=== PATIENT | female | born 1995 | race Two or more races ===

== ENCOUNTER 2022-03-19 05:54 | Emergency (ER) | payer OTHER, SELFPAY ==
--- NOTE | ~2022-03-19 | XR_ITS ---
EXAMINATION: XR CHEST CLINICAL INFORMATION: Chest pain COMPARISON: 08/15/2019 TECHNIQUE: 2 views of the chest were obtained. FINDINGS: The lungs are well expanded. There is no focal consolidation, edema, or effusion. No pneumothorax. The cardiomediastinal silhouette is within normal limits. No acute osseous abnormality. XR/XR chest 2V IMPRESSION: Clear lungs.
--- NOTE | 2022-03-19 05:59 | ECG_ITS ---
Test Reason : CP Blood Pressure : / mmHG Vent. Rate : 068 BPM Atrial Rate : 068 BPM P-R Int : 156 ms QRS Dur : 084 ms QT Int : 386 ms P-R-T Axes : 059 048 030 degrees QTc Int : 410 ms Normal sinus rhythm Normal ECG When compared with ECG of 15-AUG-2019 14:51, No significant change was found Referred By: Generic ED Physician Electronically Signed By:ERIN VILLEDA
[2022-03-19 06:18] VITALS: BP 131/56; PULSE 72; RESP 16; TEMP 36.8; O2SAT 98; BMI 40.3
[2022-03-19 06:30] LABS: MANUAL DIFF FLAG NO
[2022-03-19 06:31] LABS: Basophils Percent Auto 0.2 % (0-2); Eosinophils Absolute Auto 0.2 X10*3/uL (0.0-0.4); Eosinophils Percent Auto 1.5 % (0-4); Hematocrit 39.5 % (37.0-47.0); Hemoglobin 12.3 g/dl (12.0-16.0); Imm Gran Abs Auto 0.03 X10*3/uL (0.00-0.03); Imm Gran Pct Auto 0.3 % (0.0-0.4); Lymphocytes Absolute Auto 2.5 X10*3/uL (1.2-4.9); Lymphocytes Percent Auto 23.6 % (20-40); Mean Corpuscular HGB Conc 31.1 g/dl (31.0-35.0); Mean Corpuscular Volume 80.3 fL (80.0-98.0); Mean Platelet Volume 10.7 fL (9.4-12.3); Monocytes Absolute Auto 0.7 X10*3/uL (0.1-1.2); Monocytes Percent Auto 6.3 % (2-11); Neutrophils Absolute Auto 7.2 x10*3/uL (2.0-8.3); Neutrophils Percent Auto 68.1 % (45-73); Platelet Count 380 X10*3/uL (160-400); Red Blood Count 4.92 X10*6/uL (4.20-5.50); Red Cell Distribution Width 15.1 % (11.0-16.0); White Blood Count 10.6 X10*3/uL (4.8-10.8)
[2022-03-19 06:49] LABS: Anion Gap 15 (12-20); Blood Urea Nitrogen 9 mg/dL (9-16); Calcium 9.6 mg/dL (8.4-10.2); Carbon Dioxide 21 mmol/L (22-29); Chloride 109 mmol/L (96-108); Creatinine Clr Calc Pharmacy 139.1; Estimated Glomerular Filt Rate > 60; Glucose Random 105 mg/dL (60-115); Potassium 4.4 mmol/L (3.3-5.1); Sodium 141 mmol/L (135-145)
[2022-03-19 06:54] LABS: Troponin-I High Sensitivity < 3.5 ng/L (<3.5-17.0)
--- NOTE | 2022-03-19 09:52 | ED.CHESTPAIN ---
HPI - Chest Pain General Chief Complaint: Chest Pain Stated Complaint: chest pain Time Seen by Provider: 03/19/22 09:37 Mode of arrival: ambulatory Limitations: no limitations History of Present Illness HPI narrative: This is a 27 years old the female presented to the emergency department with a chief complaint of left-sided chest pain on and off for 1 week, denies any shortness of breath fever chills complaint: chest pain Onset (ago): week(s) (1) Timing of current episode: episodic Prior episodes: Yes Onset: during rest Pain location: substernal Pain radiation: none Severity: mild Quality: aching Relieving factors: nothing Exacerbating factors: nothing Risk Factors Coronary artery disease risk factors: none Thoracic aortic dissection risk factors: none Related Data Previous Rx's Medication Instructions Recorded clotrimazole-betamethasone 1 1 appl topical BID 2 weeks #45 03/14/22 %-0.05 % topical cream grams Allergies Allergy/AdvReac Type Severity Reaction Status Date / Time No Known Allergies Allergy Verified 03/19/22 06:18 Review of Systems Review of Systems: Yes all other systems are reviewed and are negative Cardiovascular: Cardiovascular: Reports chest pain Respiratory: Respiratory: Reports no additional respiratory complaints Gastrointestinal: Gastrointestinal: Reports no additional gastrointestinal complaints Musculoskeletal: Musculoskeletal: Reports no additional musculoskeletal complaints [facility] Past Medical History Surgical History History of wisdom tooth extraction Family History Family History Father Diabetes Mother No problems noted. Maternal Grandfather Diabetes Paternal Grandfather Diabetes Colon cancer Sister In good health Sister In good health Social History Social History Housing: Apartment Patient Tobacco Use Status: Never used Tobacco Advance Directives: No Advance Directives Information Provided: Yes service: No Current occupational status: employed Vision needs: Yes Physical Exam Vital Signs: Vital Signs: Last Vital Signs Temp 98.2 F 03/19/22 06:18 Pulse 72 03/19/22 06:18 Resp 16 03/19/22 06:18 BP 131/56 L 03/19/22 06:18 Pulse Ox 98 03/19/22 06:18 O2 Del Method 03/19/22 06:18 BMI result Body Mass Index 40.3 Const: General: cooperative Nutritional Appearance: well nourished Orientation/consciousness: patient oriented x3 HEENT: Head: Yes normal to inspection General nose exam: Normal external nose present Face and sinus: Yes normal facial exam Mouth: Normal oral and palatal mucosa present Teeth and gingiva: dentition normal Throat: Yes posterior oropharynx normal Neck: Neck: Yes full ROM and Yes no lymphadenopathy Resp: Effort & Inspection: normal respiratory effort and able to speak in complete sentences Auscultation: clear to auscultation bilaterally Cardio: Jugular venous distension: no JVD Rate: regular rate Rhythm: regular rhythm GI: Inspection: Yes normal to inspection Palpation (GI): Soft to palpation, not firm, nontender and no guarding Percussion: Yes normal to percussion Skin: General skin exam: no rashes or lesions noted and elasticity normal Lesions: no lesions Rashes: no rashes Neuro: General: patient oriented x3 Cranial nerves: Yes CN's II-XII intact bilaterally Cognition (Neuro): normal cognition Gait exam (Neuro): Normal gait present MDM - Chest Pain MDM Narrative Medical decision making narrative: This is a very low risk patient, she has a normal troponin negative EKG negative chest x-ray, the patient can be discharged home and follow-up with the PCP Lab Data Result diagrams: 03/19/22 06:27 03/19/22 06:27 Labs: Lab Results 03/19/22 03/19/22 03/19/22 Range/Units 06:27 06:27 06:27 WBC 10.6 (4.8-10.8) X10*3/uL RBC 4.92 (4.20-5.50) X10*6/uL Hgb 12.3 (12.0-16.0) g/dl Hct 39.5 (37.0-47.0) % MCV 80.3 (80.0-98.0) fL MCH 25.0 L (27.0-33.0) pg MCHC 31.1 (31.0-35.0) g/dl RDW 15.1 (11.0-16.0) % Plt Count 380 (160-400) X10*3/uL MPV 10.7 (9.4-12.3) fL Immature Gran % (Auto) 0.3 (0.0-0.4) % Neut % (Auto) 68.1 (45-73) % Lymph % (Auto) 23.6 (20-40) % [place] % (Auto) 6.3 (2-11) % Eos % (Auto) 1.5 (0-4) % Baso % (Auto) 0.2 (0-2) % Lymph # (Auto) 2.5 (1.2-4.9) X10*3/uL [place] # (Auto) 0.7 (0.1-1.2) X10*3/uL Eos # (Auto) 0.2 (0.0-0.4) X10*3/uL Baso # (Auto) 0.0 (0.0-0.2) X10*3/uL Abs Immat Gran (auto) 0.03 (0.00-0.03) X10*3/uL Absolute Neuts (auto) 7.2 (2.0-8.3) x10*3/uL Absolute Nucleated RBC 0.000 (0.0-0.012) X10*3/uL Nucleated RBC % (auto) 0.0 (0.0-0.2) /100WBC Sodium 141 (135-145) mmol/L Potassium 4.4 (3.3-5.1) mmol/L Chloride 109 H (96-108) mmol/L Carbon Dioxide 21 L (22-29) mmol/L Anion Gap 15 (12-20) BUN 9 (9-16) mg/dL Creatinine 0.79 (0.5-1.4) mg/dL Estim Creat Clear Calc 139.1 Estimated GFR > 60 Random Glucose 105 (60-115) mg/dL Calcium 9.6 (8.4-10.2) mg/dL Troponin I High Sens < 3.5 (<3.5-17.0) ng/L Imaging Data Chest x-ray: Radiologist's impression: EXAMINATION: XR CHEST CLINICAL INFORMATION: Chest pain COMPARISON: 08/15/2019 TECHNIQUE: 2 views of the chest were obtained. FINDINGS: The lungs are well expanded. There is no focal consolidation, edema, or effusion. No pneumothorax. The cardiomediastinal silhouette is within normal limits. No acute osseous abnormality. XR/XR chest 2V IMPRESSION: Clear lungs. Dictated By: Nick Wooten MD Signed By: <Electronically signed by Nick Wooten MD in OV> 03/19/22 0641 ECG Data ECG #1: Attestation: I personally reviewed and interpreted this ECG as follows: Pacemaker model: Normal sinus rhythm rate [address]-T changes Discharge Plan Discharge Clinical Impression: Chest pain Patient Disposition: Home, Self-Care Instructions: Chest Pain (DC) Additional Instructions: Follow-up with your primary care physician tomorrow return if you worse Prescriptions: No Action clotrimazole-betamethasone 1-0.05 % cream 1 appl topical BID 14 Days Qty: 45 0RF Referrals: Esther Ash FNP [Primary Care Provider] - 2 days Stand Alone Forms: Work/School Release Interventions: ED Discharge Assessment Last Done: 03/19/22 10:09 Discharge Date/Time: 03/19/22 10:09
--- NOTE | 2022-03-19 10:07 | PC.NURSE ---
Pt comes in with complaints of SSCP which began after new work out routine x 1 week with pre work out suppliments. Pt has since stopped suppliments. Pt is A&Ox4, NSR, no edema, LCA, + pulses and cap refill. Call ji within reach, awaiting further orders Will continue to monitor.
== END 2022-03-19 10:09 | disposition home or self-care (01) ==
PROVIDERS: Emergency Provider Emergency Medicine; PCP Nurse Practitioner Family
DX: R07.9 Chest pain, unspecified (principal); E66.01 Morbid (severe) obesity due to excess calories; Z68.41 Body mass index [BMI] 40.0-44.9, adult
CPT/HCPCS: 36415; 71046; 80048; 84484; 85025; 93005; 99283; 99284

== ENCOUNTER → 2022-07-31 15:52 | Outpatient (BNVA) | payer OTHER, SELFPAY | PROVIDERS: PCP Nurse Practitioner Family; Visit Provider Advanced Practice Midwife | DX: N92.6 Irregular menstruation, unspecified (principal) | CPT/HCPCS: 81025 ==

== ENCOUNTER 2022-08-14 14:47 | Outpatient (REF) | payer OTHER, SELFPAY ==
--- NOTE | ~2022-08-14 | US_ITS ---
EXAMINATION: US OBSTETRICAL ULTRASOUND CLINICAL INFORMATION: Irregular periods, first trimester dating COMPARISON: None. LMP: 06/13/2022. Gestational age by maternal dates is 8 weeks and 6 days. Estimated date of delivery by maternal dates is 03/20/2023. TECHNIQUE: Routine grayscale imaging of pelvis was performed with attention to the uterus. FINDINGS: There is a single intrauterine gestational sac with visible yolk sac, embryo/fetus, and cardiac activity. There is no significant subchorionic hemorrhage or hematoma. HR: 169 beats per minute. CRL (crown rump length): 1.85 cm (8 weeks and 3 days +/- 4 days). UMAIR (estimated date of delivery): 8 3633 +/- 4 days. MATERNAL ADNEXA: The right maternal ovary measures 3.4 x 2.3 x 2.4 cm. The left maternal ovary measures 3.1 x 2.0 x 1.4 cm. There is no significant maternal adnexal mass. No maternal pelvic ascites. US/US OB <= 14 weeks fetus IMPRESSION: 1. Single intrauterine gestation with ultrasound gestational age of 8 weeks and 3 days +/- 4 days. 2. Estimated date of delivery is 03/23/2023 +/- 4 days. 3. No maternal adnexal mass or pelvic ascites.
== END 2022-08-14 14:48 | disposition home or self-care (01) ==
LOC: HO.US 14:47
PROVIDERS: Visit Provider Advanced Practice Midwife
DX: Z34.91 Encounter for supervision of normal pregnancy, unspecified, first trimester (principal); N92.6 Irregular menstruation, unspecified
CPT/HCPCS: 76801

== ENCOUNTER → 2022-08-28 15:54 | Outpatient (BNVA) | payer OTHER, SELFPAY | PROVIDERS: PCP Nurse Practitioner Family; Visit Provider Advanced Practice Midwife | DX: Z13.89 Encounter for screening for other disorder (principal) ==

== ENCOUNTER 2024-05-11 15:49 | Outpatient (AMB) | payer OTHER, SELFPAY ==
--- NOTE | 2024-05-11 15:51 | A.OFFPC_ITS ---
Vital Signs 05/11/24 15:52 Height 5 ft 6 in Weight 278 lb 0.6 oz BMI 44.9 BP 142/80 H Blood Pressure Location Lt brachial Position Sitting Pulse 68 Pulse Source Pulse Oximeter Pulse Oximetry (%) 98 Oxygen Delivery Method Room Air Intake Visit Reasons: annual exam/ establish care Intake Note: Patient is here today for a physical. Rn Perioperative Required: No Allergies No Known Allergies Allergy (Verified 05/11/24 16:04) Medication List - Last Reconciled 05/11/24 by Carol Pang PA-C No Known Home Meds Tobacco use date assessed: 05/11/24 Dental Screening Dental Screen Date: 05/11/24 Did you have a dental visit in the last 12 months?: No Did you have a dental problem in the last 6 months where you did not have access to dental care?: No Was dental information given to patient?: Patient has dentist HPI annual exam/ establish care HPI Details 29-year-old female with past medical his tory of morbid obesity last seen by nurse practitioner coming in for annual exam. Patient is up-to-date on Pap smears and we will follow with [facility] this week for routine Pap smear. She is concerned about her weight gain and would like to discuss weight loss options today. Otherwise has no acute concerns. [facility] Medical History (Updated 05/11/24 @ 16:31 by Carol Pang PA-C) Gestational hypertension delivery delivered Surgical History History of wisdom tooth extraction Family History Father Diabetes Mother No problems noted. Maternal Grandfather Diabetes Paternal Grandfather Diabetes Colon cancer Sister In good health Sister In good health Social History Housing: Apartment Patient Tobacco Use Status: Never used Tobacco service: No Current occupational status: employed Cognitive needs: No Hearing needs: No Vision needs: Yes Female Reproductive History Menstrual control method: none Total pregnancies: 1 Full term: 1 History of abnormal pap smear: No Questionnaire PHQ-9 Over the last 2 weeks, how often have you been bothered by any of the following problems? 1. Little interest or pleasure in doing things: not at all 2. Feeling down, depressed, or hopeless: not at all 3. Trouble falling or staying asleep, or sleeping too much: not at all 4. Feeling tired or having little energy: not at all 5. Poor appetite or overeating: not at all 6. Feeling bad about yourself - or that you are a failure or have let yourself or your family down: not at all 7. Trouble concentrating on things, such as reading the newspaper or watching television: not at all 8. Moving or speaking so slowly that other people could have noticed. Or the opposite - being so fidgety or restless that you have been moving around a lot more than usual: not at all 9. Thoughts that you would be better off or of hurting yourself in some way: not at all Total score: 0 Depression Screening Interpretation: Negative Depression Screening Done: Yes Source: Developed by Drs. Erick Becker, Cely Ray, Eugene Mckay and colleagues, with an educational christofer from [employer]. Thrive Questionnaire Date Thrive assessed: 05/11/24 I am a: Patient What is your living situation today?: I have a steady place to live Within the past 12 months, did the food you bought not last and you didn't have the money to get more?: Never true Within the past 12 months, did you worry whether your food would run out before you got money to buy more?: Never true Do you have trouble paying for medicines?: No Do you have trouble getting transportation to medical appointments?: No Do you have trouble paying your heating and electricity bill?: No Do you have trouble taking care of your child, family member or friend?: No Do you have trouble with day-to-day activities such as bathing, preparing meals, shopping, managing finances, etc.?: No Are you currently unemployed and looking for a job?: No Are you interested in more education?: No Please select the resources that you would like help with: None Currently or been in a relationship where the following occur: No concerns reported THRIVE Score: 0 AUDIT C Alcohol Use Questionnaire (AUDIT-C) 1. How often do you have a drink containing alcohol?: Never 3. How often do you have six or more drinks on one occasion?: Never Total Score: 0 ROSHAN-7 AMB Questionnaire ROSHAN-7 Date ROSHAN - 7 assessed: 05/11/24 Feeling nervous, anxious, or on edge: 0 = Not at all Not being able to stop or control worryin = Not at all Worrying too much about different things: 0 = Not at all Trouble relaxin = Not at all Being so restless that it is hard to sit still: 0 = Not at all Becoming easily annoyed or irritable: 0 = Not at all Feeling afraid as if something awful might happen: 0 = Not at all Total ROSHAN-7 score (0-4 normal; 5-9 mild; 10-14 moderate; 15-21 severe): 0 Source: Developed by Drs. Erick Becker, Cely Ray, Eugene Mckay and colleagues, with an educational christofer from [employer]. ROSHAN-7 Assessment Billing ROSHAN-7 Assessment Tool: ROSHAN-7 Assessment 45582 Review of Systems Const Denies body aches, Denies fatigue, Denies fever(s), Denies frequent falls, Denies headache(s) and Denies weakness Eyes Reports no additional complaints and Denies change in vision ENT Denies dysphagia, Denies dizziness, Denies facial pain, Denies headache(s), Denies nasal congestion and Denies odynophagia Card Denies chest pain, Denies syncope, Denies irregular heart rhythm, Denies leg edema, Denies lightheadedness and Denies dyspnea Resp Denies cough and Denies dyspnea GI Denies constipation, Denies dysphagia, Denies dyspepsia, Denies diarrhea, Denies nausea, Denies odynophagia and Denies vomiting Denies urinary frequency, Denies dysuria, Denies urinary hesitancy and Denies urinary urgency Musc Denies back pain and Denies myalgias Skin/Breast Reports system reviewed and no additional complaints, except as documented Neuro Denies dizziness, Denies syncope, Denies frequent falls, Denies headache(s) and Denies weakness Psych Reports no additional complaints Endo Denies fatigue Physical exam (Primary Care) Vital Signs: Last Vital Signs Pulse 68 05/11/24 15:52 BP 142/80 H 05/11/24 15:52 Pulse Ox 98 05/11/24 15:52 Oxygen Delivery Method Room Air 05/11/24 15:52 BMI result Body Mass Index 44.9 Tobacco/Smoking Status: Tobacco use Status Tobacco use date assessed 05/11/24 05/11/24 15:53 Patient Tobacco Use Status Never used Tobacco 05/11/24 15:53 PHQ-9: PHQ-9 Score PHQ-9: Total score 0 05/11/24 16:01 Depression Screening Interpretation: Negative Thrive Assessment: Date of Thrive Assessment Date Thrive assessed 05/11/24 05/11/24 15:53 Currently or been in a relationship where the following occur: No concerns reported Const General: cooperative, healthy appearing, comfortable and no acute distress Orientation/consciousness: patient oriented x3 HENMT Head: Yes normocephalic Ears: hearing grossly normal bilaterally, external ears normal, TM's normal bilaterally and EAC's normal General nose exam: Normal external nose present Face and sinus: Yes normal facial exam and Yes sinuses nontender Mouth: Normal oral and palatal mucosa present and tongue normal Throat: Yes posterior oropharynx normal Eyes General: appearance normal, both eyes and all related structures Conjunctivae: conjunctivae normal Pupils: Equal, round and reactive pupils present EOM: EOMs intact bilaterally and No Nystagmus present Neck Neck: Yes normal visual inspection, Yes full ROM and Yes no lymphadenopathy Chest Chest palpation & inspection: normal inspection of the chest Resp Effort & Inspection: normal respiratory effort Auscultation: clear to auscultation bilaterally, no crackles, no rales, no rhonchi, no wheezes and breath sounds present Cardio Rate: regular rate Rhythm: regular rhythm Peripheral pulses: radial pulses present and dorsalis pedis present GI Inspection: Yes normal to inspection and No Abdominal wall edema Palpation (GI): Soft to palpation, not firm and nontender Auscultation: normal bowel sounds Rectal Exam - Female: deferred General: Yes no CVA tenderness Back/Spine/Pelvis Back: no CVA tenderness Skin General skin exam: no rashes or lesions noted Neuro General: patient oriented x3 Cranial nerves: Yes Equal, round and reactive pupils present, Yes Midline tongue present, Yes Ability to bilaterally elevate shoulders present and No Nystagmus present Gait exam (Neuro): Normal gait present Extrem General: Yes normal to inspection, Yes full ROM, No no pedal edema and No edema Psych Speech and movement: Normal speech and movement present Affect: normal affect Insight: Good insight present (Psych) Judgement: Good judgement present (Psych) Coding Level of Care Code Est Pt Level 3 (18101) Est Pt Prev Care 18-39y(01398) Diagnoses Morbid obesity with BMI of 40.0-44.9, adult E66.01; Z68.41 Adult general medical exam Z00.00 Elevated blood pressure reading without diagnosis of hypertension R03.0 Additional Codes ROSHAN-7 Assessment Billing - ROSHAN-7 Assessment Tool: ROSHAN-7 Assessment 83813 ([id number]) Assessment & Plan Assessment & Plan (1) Morbid obesity with BMI of 40.0-44.9, adult: Code(s): E66.01 - Morbid (severe) obesity due to excess calories; Z68.41 - Body mass index [BMI] 40.0-44.9, adult Category: Medical Plan: Encouraged healthy diet and regular exercise. Treatment options were discussed at length and we will refer to [place] weight management. Nutritional referral was also placed today. We will start Wegovy 0.25 mg advised patient to have blood work completed prior to injections and we will order for repeat kidney function tests in 1 month. Follow up in 3 months. (2) Adult general medical exam: Comment: Salazar MULLIGAN's Pfizer x 2. Pap 5 years ago, pt is to call for woman's exam Code(s): Z00.00 - Encounter for general adult medical examination without abnormal findings Category: Medical Plan: Patient is up-to-date on all recommended routine screenings and vaccinations for her age. Patient has appointment with [facility] women's health this week for updated Pap smear. Routine blood work ordered. (3) Elevated blood pressure reading without diagnosis of hypertension: Code(s): R03.0 - Elevated blood-pressure reading, without diagnosis of hypertension Category: Medical Plan: Avoid salt intake and encourage healthy diet and regular exercise. Plan This note was constructed using voice recognition software. While every effort has been made to ensure accuracy and engine pilot, still areas may have been included sometimes these areas may affect the content or meeting of the given symptoms. Total time spent caring for the patient today was 30 minutes. This includes time spent before the visit reviewing the chart, time spent during the visit, and time spent after the visit and documentation. Orders: Orders Hemoglobin A1c Today Z00.00 - Encounter for general adult medical examination without abnormal findings TSH reflex Free T4 Today Z00.00 - Encounter for general adult medical examination without abnormal findings Vitamin B12 and Folate Today Z00.00 - Encounter for general adult medical examination without abnormal findings Vitamin D 25-OH (D2 and D3) Today Z00.00 - Encounter for general adult medical examination without abnormal findings Complete Blood Count Auto Diff Today Z00.00 - Encounter for general adult medical examination without abnormal findings Comprehensive Met. Panel Today Z00.00 - Encounter for general adult medical examination without abnormal findings Free T4 (Free Thyroxine) Today Z00.00 - Encounter for general adult medical examination without abnormal findings Lipid Panel Today Z00.00 - Encounter for general adult medical examination without abnormal findings Basic Metabolic Panel 1 Month E66.01 - Morbid (severe) obesity due to excess calories, Z68.41 - Body mass index [BMI] 40.0-44.9, adult Referrals Medical Weight Management Referral E66.01 - Morbid (severe) obesity due to excess calories, Z68.41 - Body mass index [BMI] 40.0-44.9, adult [employer] Nutrition Referral E66.01 - Morbid (severe) obesity due to excess calories, Z68.41 - Body mass index [BMI] 40.0-44.9, adult Medications: New semaglutide (weight loss) (Ilya) administer weeks 1 through 4 of therapy 0.25 mg (0.5 mL) subcut QWEEK 2 mL 0RF
[2024-05-11 15:52] VITALS: BP 142/80; PULSE 68; O2SAT 98; BMI 44.9
== END 2024-05-11 16:29 | disposition home or self-care (01) ==
DX: Z00.00 Encounter for general adult medical examination without abnormal findings (principal); R03.0 Elevated blood-pressure reading, without diagnosis of hypertension; E66.813 Obesity, class 3; Z68.41 Body mass index [BMI] 40.0-44.9, adult

== ENCOUNTER → 2024-05-11 15:49 | Outpatient (BNVA) | payer OTHER, SELFPAY | DX: Z00.00 Encounter for general adult medical examination without abnormal findings (principal); E66.01 Morbid (severe) obesity due to excess calories; Z68.41 Body mass index [BMI] 40.0-44.9, adult; R03.0 Elevated blood-pressure reading, without diagnosis of hypertension | CPT/HCPCS: 96127 ==

== ENCOUNTER 2024-07-27 10:57 | Outpatient (AMB) | payer OTHER, SELFPAY ==
--- NOTE | 2024-07-27 11:03 | MHC.PC.OV ---
Vital Signs 07/27/24 11:04 Height 5 ft 6 in Weight 269 lb BMI 43.4 BP 122/70 Blood Pressure Location Lt brachial Position Sitting Pulse 70 Pulse Source Pulse Oximeter Pulse Oximetry (%) 98 Oxygen Delivery Method Room Air Intake Visit Reasons: Pain right abdomen Intake Note: The patient presents with dull right upper quadrant pain that has been ongoing for 3-4 days. Roving Tester Laboratory Required: No Accompanied by: Self / Same As Patient Allergies No Known Allergies Allergy (Verified 07/27/24 11:04) Medication List - Last Reconciled 07/27/24 by Carol Pang PA-C semaglutide (weight loss) (Wegovy) 0.25 mg (0.5 mL) subcut QWEEK Tobacco use date assessed: 05/11/24 Dental Screening Dental Screen Date: 05/11/24 HPI Pain right abdomen HPI Details 29-year-old female with past medical history of morbid obesity last seen April 2024 coming in for acute problem. Today she tells us she began having intermittent mild right upper quadrant pain for the last 4 days. Previously she was following a very strict diet for weight loss but more recently over the holiday she has been eating greasy and fried food as well as processed foods. Yesterday she had an episode of diarrhea that resolved with Imodium. 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 She states the right upper quadrant pain is intermittent and typically after eating and feels like a dull ache. Denies any nausea or vomiting with this pain and denies fevers, chest pain or shortness of breath. [facility] Medical History Gestational hypertension delivery delivered Surgical History History of wisdom tooth extraction Family History Father Diabetes Mother No problems noted. Maternal Grandfather Diabetes Paternal Grandfather Diabetes Colon cancer Sister In good health Sister In good health Social History Housing: Apartment Patient Tobacco Use Status: Never used Tobacco e-Cigarette/Vaping Use: Never Used service: No Current occupational status: employed Cognitive needs: No Hearing needs: No Vision needs: Yes Questionnaire PHQ-9 Over the last 2 weeks, how often have you been bothered by any of the following problems? 1. Little interest or pleasure in doing things: not at all 2. Feeling down, depressed, or hopeless: not at all 3. Trouble falling or staying asleep, or sleeping too much: not at all 4. Feeling tired or having little energy: not at all 5. Poor appetite or overeating: not at all 6. Feeling bad about yourself - or that you are a failure or have let yourself or your family down: not at all 7. Trouble concentrating on things, such as reading the newspaper or watching television: not at all 8. Moving or speaking so slowly that other people could have noticed. Or the opposite - being so fidgety or restless that you have been moving around a lot more than usual: not at all 9. Thoughts that you would be better off or of hurting yourself in some way: not at all Total score: 0 Depression Screening Interpretation: Negative Depression Screening Done: Yes Source: Developed by Drs. Erick Becker, Cely Ray, Eugene Mckay and colleagues, with an educational christofer from [employer] Thrive Questionnaire Date Thrive assessed: 07/27/24 I am a: Patient What is your living situation today?: I have a steady place to live Within the past 12 months, did the food you bought not last and you didn't have the money to get more?: Never true Within the past 12 months, did you worry whether your food would run out before you got money to buy more?: Never true Do you have trouble paying for medicines?: No Do you have trouble getting transportation to medical appointments?: No Do you have trouble paying your heating and electricity bill?: No Do you have trouble taking care of your child, family member or friend?: No Do you have trouble with day-to-day activities such as bathing, preparing meals, shopping, managing finances, etc.?: No Are you currently unemployed and looking for a job?: No Are you interested in more education?: No Please select the resources that you would like help with: None Currently or been in a relationship where the following occur: No concerns reported THRIVE Score: 0 AUDIT C Alcohol Use Questionnaire (AUDIT-C) 1. How often do you have a drink containing alcohol?: Never 3. How often do you have six or more drinks on one occasion?: Never Total Score: 0 ROSHAN-7 AMB Questionnaire ROSHAN-7 Date ROSHAN - 7 assessed: 07/27/24 Feeling nervous, anxious, or on edge: 0 = Not at all Not being able to stop or control worryin = Not at all Worrying too much about different things: 0 = Not at all Trouble relaxin = Not at all Being so restless that it is hard to sit still: 0 = Not at all Becoming easily annoyed or irritable: 0 = Not at all Feeling afraid as if something awful might happen: 0 = Not at all Total ROSHAN-7 score (0-4 normal; 5-9 mild; 10-14 moderate; 15-21 severe): 0 Source: Developed by Drs. Erick Becker, Cely Ray, Eugene Mckay and colleagues, with an educational christofer from [employer] ROSHAN-7 Assessment Billing ROSHAN-7 Assessment Tool: ROSHAN-7 Assessment 10458 Review of Systems Const Denies body aches, Denies chills, Denies fever(s) and Denies poor appetite Card Denies chest pain, Denies syncope, Denies edema, Denies irregular heart rhythm, Denies lightheadedness and Denies dyspnea Resp Denies cough and Denies dyspnea GI Reports abdominal pain (Per HPI), Denies constipation, Reports diarrhea (Single episode), Denies nausea and Denies vomiting Details: No pain or blood with urination Reports no additional complaints Musc Reports no additional complaints and Denies abnormal gait Skin/Breast Reports system reviewed and no additional complaints, except as documented Neuro Denies abnormal gait and Denies syncope Psych Reports no additional complaints Physical exam (Primary Care) Vital Signs: Last Vital Signs Pulse 70 07/27/24 11:04 BP 122/70 07/27/24 11:04 Pulse Ox 98 07/27/24 11:04 Oxygen Delivery Method Room Air 07/27/24 11:04 BMI result Body Mass Index 43.4 Tobacco/Smoking Status: Tobacco use Status Tobacco use date assessed 05/11/24 07/27/24 11:07 Patient Tobacco Use Status Never used Tobacco 07/27/24 11:07 e-Cigarette/Vaping Use Never Used 07/27/24 11:07 PHQ-9: PHQ-9 Score PHQ-9: Total score 0 07/27/24 11:11 Depression Screening Interpretation: Negative Thrive Assessment: Date of Thrive Assessment Date Thrive assessed 07/27/24 07/27/24 11:07 Currently or been in a relationship where the following occur: No concerns reported Const General: cooperative, healthy appearing, comfortable and no acute distress Orientation/consciousness: patient oriented x3 HENMT Head: Yes normocephalic Ears: hearing grossly normal bilaterally General nose exam: Normal external nose present Eyes General: appearance normal, both eyes and all related structures Conjunctivae: conjunctivae normal Neck Neck: Yes full ROM and Yes no lymphadenopathy Resp Effort & Inspection: normal respiratory effort Auscultation: clear to auscultation bilaterally, no crackles, no rales, no rhonchi and no wheezes Cardio Rate: regular rate Rhythm: regular rhythm GI Inspection: Yes normal to inspection and No Abdominal wall edema Palpation (GI): Soft to palpation, not firm, nontender, no guarding, not rigid, no hepatosplenomegaly, no masses and No Rebound tenderness present Skin General skin exam: no rashes or lesions noted Neuro General: patient oriented x3 Gait exam (Neuro): Normal gait present Extrem General: Yes normal to inspection, Yes full ROM and No edema Psych Affect: normal affect Attitude: cooperative Insight: Good insight present (Psych) Judgement: Good judgement present (Psych) Coding Level of Care Code Est Pt Level 3 (58312) Diagnoses RUQ pain R10.11 Elevated blood pressure reading without diagnosis of hypertension R03.0 Morbid obesity with BMI of 40.0-44.9, adult E66.01; Z68.41 Additional Codes ROSHAN-7 Assessment Billing - ROSHAN-7 Assessment Tool: ROSHAN-7 Assessment 76359 ([id number]) Assessment & Plan Assessment & Plan (1) RUQ pain: Code(s): R10.11 - Right upper quadrant pain Category: Medical Plan: Patient having reported right upper quadrant pain that is intermittent and very mild and we will typically occur after eating greasy or fried foods. Pain began about 4 days ago. No pain to palpation on exam and no evidence of acute abdomen requiring immediate imaging or intervention. Ordered for abdominal ultrasound for further evaluation suspecting gallbladder etiology. Also ordered for urinalysis with urine and blood work to rule out other etiology. Reviewed red flag symptoms of abdominal pain and when to present for re-evaluation. (2) Elevated blood pressure reading without diagnosis of hypertension: Code(s): R03.0 - Elevated blood-pressure reading, without diagnosis of hypertension Category: Medical Plan: Continue on current blood pressure medication. Avoid salt intake and encourage healthy diet and regular exercise. Blood pressure normal today 122/70 (3) Morbid obesity with BMI of 40.0-44.9, adult: Code(s): E66.01 - Morbid (severe) obesity due to excess calories; Z68.41 - Body mass index [BMI] 40.0-44.9, adult Category: Medical Plan: Healthy diet and regular exercise is encouraged. Noted 9 lb weight loss since starting the Wegovy and implementing healthy diet and regular exercise. Reminded patient about blood work. Plan This note was constructed using voice recognition software. While every effort has been made to ensure accuracy and security site supervisor, still areas may have been included sometimes these areas may affect the content or meeting of the given symptoms. Total time spent caring for the patient today was 20 minutes. This includes time spent before the visit reviewing the chart, time spent during the visit, and time spent after the visit and documentation. Orders: Orders UA CC w/rflx Micro + Cult Today M54.50 - Low back pain, unspecified US abdomen complete Today R10.11 - Right upper quadrant pain Ur Preg Test Today M54.50 - Low back pain, unspecified Medications: New simethicone (Gas Relief (simethicone)) 125 mg PO BID PRN 20 tabs 1RF abdominal distention
[2024-07-27 11:04] VITALS: BP 122/70; PULSE 70; O2SAT 98; BMI 43.4
== END 2024-07-27 11:35 | disposition home or self-care (01) ==
DX: R10.11 Right upper quadrant pain (principal); R03.0 Elevated blood-pressure reading, without diagnosis of hypertension; E66.01 Morbid (severe) obesity due to excess calories; Z68.41 Body mass index [BMI] 40.0-44.9, adult

== ENCOUNTER 2024-07-27 10:57 | Outpatient (REF) | payer OTHER, SELFPAY ==
[2024-07-27 13:23] LABS: Appearance Urine Clear; Color Urine Yellow; Glucose Urine UA Negative (Negative); Leukocyte Esterase Urine Negative (Negative); Nitrite Urine Negative (Negative); PH 5.5 (5.0-9.0); Specific Gravity - Urine <= 1.005 (1.005-1.025); UMIC TRIGGER UACC YES; Urine Blood Large (3+) (Negative); Urine Ketones Negative (Negative); Urine Protein Negative (Neg-Trace)
[2024-07-27 13:24] LABS: UPreg QC Valid YES; Urine Pregnancy NEGATIVE (NEGATIVE)
[2024-07-27 13:43] LABS: Bacteria Urine None Seen (None Seen); Hyaline Casts Urine 0-2 /LPF (0-2); RBC Urine 0-2 /HPF (0-2); Squamous Epithelial Cell Urine 0-2 /HPF (0-2); WBC Urine 0-5 /HPF (0-5)
== END 2024-07-27 10:58 | disposition home or self-care (01) ==
LOC: HO.LAB 10:57
DX: R03.0 Elevated blood-pressure reading, without diagnosis of hypertension (principal); M54.50 Low back pain, unspecified; R10.11 Right upper quadrant pain; E66.01 Morbid (severe) obesity due to excess calories; Z68.41 Body mass index [BMI] 40.0-44.9, adult; Z71.3 Dietary counseling and surveillance
CPT/HCPCS: 81001; 81025; 96127

== ENCOUNTER 2024-08-10 08:58 | Outpatient (REF) | payer OTHER, SELFPAY ==
--- NOTE | ~2024-08-10 | US_ITS ---
EXAMINATION: US ABDOMEN COMPLETE CLINICAL INFORMATION: Right upper quadrant pain. COMPARISON: None available. TECHNIQUE: Real-time imaging of the abdominal viscera. FINDINGS: PANCREAS: Visualized portions are unremarkable. ABDOMINAL AORTA: The proximal, mid, and distal segments are normal in caliber. INFERIOR VENA CAVA: Visualized portions are normal. LIVER: The liver is normal in size. The liver contour is normal. Parenchymal echogenicity is normal. No focal hepatic lesion. There is no intrahepatic biliary duct dilatation seen. GALLBLADDER: The gallbladder is physiologically distended multiple echogenic stones. There is impacted stone in the neck of the gallbladder measuring 1.3 x 0.9 x 1.2 cm. Gallbladder wall thickness is normal measuring 0.18 cm. No pericholecystic fluid collection. There is no tenderness in the right upper quadrant by ultrasound probe. COMMON BILE DUCT: Normal in caliber measuring 0.25 cm in diameter. RIGHT KIDNEY: No hydronephrosis. No renal calculi or focal parenchymal lesions. The kidney measures 11.5 cm in maximum dimension. LEFT KIDNEY: No hydronephrosis. No renal calculi or focal parenchymal lesions. The kidney measures 11.9 cm in maximum dimension. SPLEEN: The spleen measures 14.1 cm in maximum dimension. FREE FLUID: None. US/US abdomen complete IMPRESSION: Cholelithiasis without wall thickening with negative Martinez's sign. Rest of the abdominal ultrasound is unremarkable.. Electronically signed by: Mika Shultz MD 08/10/2024 10:01 AM AYO
== END 2024-08-10 08:59 | disposition home or self-care (01) ==
LOC: HO.HMGCX 08:58
DX: R10.11 Right upper quadrant pain (principal)
CPT/HCPCS: 76700

== ENCOUNTER → 2024-08-10 09:00 | Outpatient (BNV) | payer OTHER, SELFPAY | PROVIDERS: Visit Provider Radiology Diagnostic Radiology | DX: R10.11 Right upper quadrant pain (principal) | CPT/HCPCS: 76700 ==

== ENCOUNTER 2024-08-11 15:50 | Outpatient (AMB) | payer OTHER, SELFPAY ==
--- NOTE | 2024-08-11 16:00 | A.OFFPC_ITS ---
Vital Signs 08/11/24 16:02 Height 5 ft 6 in Weight 268 lb 2 oz BMI 43.3 BP 130/74 Blood Pressure Location Lt brachial Position Sitting Pulse 68 Pulse Source Pulse Oximeter Temp 97.1 F Temp Source Skin Pulse Oximetry (%) 98 Oxygen Delivery Method Room Air Intake Visit Reasons: weight f/u Intake Note: Patient is here to follow up on weight. Undercoater Required: No Supervisor Tank House: Not Required per policy Accompanied by: Self / Same As Patient Allergies No Known Allergies Allergy (Verified 08/11/24 16:01) Medication List - Last Reconciled 08/11/24 by Carol Pang PA-C semaglutide (weight loss) (Wegovy) 0.25 mg (0.5 mL) subcut QWEEK simethicone (Gas Relief (simethicone)) 125 mg PO BID PRN Tobacco use date assessed: 08/11/24 Dental Screening Dental Screen Date: 08/11/24 Did you have a dental visit in the last 12 months?: No Did you have a dental problem in the last 6 months where you did not have access to dental care?: No Was dental information given to patient?: No HPI weight f/u HPI Details 29-year-old female with past medical his tory of morbid obesity last seen 06/2024 coming in for follow up. Noted 10 lb weight loss. Patient tells us today she is no longer taking the Wegovy was never able to get this medication. She also states she is no longer having pain in the right upper quadrant area. Ever since she returned to her normal diet and stopped eating greasy foods this pain has resolved. She has not yet seen the weight management clinic due to issues obtaining documents. [facility] Medical History Gestational hypertension delivery delivered Surgical History History of wisdom tooth extraction Family History (Updated 08/11/24 @ 16:00 by SANDY Cochran) Father Diabetes Mother No problems noted. Maternal Grandfather Diabetes Paternal Grandfather Diabetes Colon cancer Sister In good health Sister In good health Social History (Updated 08/11/24 @ 16:00 by SANDY Cochran) Housing: Apartment Alcohol intake: never Patient Tobacco Use Status: Never used Tobacco e-Cigarette/Vaping Use: Never Used Second Hand Smoke Exposure: No service: No Current occupational status: employed Cognitive needs: No Hearing needs: No Vision needs: Yes Questionnaire PHQ-9 Over the last 2 weeks, how often have you been bothered by any of the following problems? 1. Little interest or pleasure in doing things: not at all 2. Feeling down, depressed, or hopeless: not at all 3. Trouble falling or staying asleep, or sleeping too much: not at all 4. Feeling tired or having little energy: not at all 5. Poor appetite or overeating: not at all 6. Feeling bad about yourself - or that you are a failure or have let yourself or your family down: not at all 7. Trouble concentrating on things, such as reading the newspaper or watching television: not at all 8. Moving or speaking so slowly that other people could have noticed. Or the opposite - being so fidgety or restless that you have been moving around a lot more than usual: not at all 9. Thoughts that you would be better off or of hurting yourself in some way: not at all Total score: 0 Depression Screening Interpretation: Negative Depression Screening Done: Yes Source: Developed by Drs. Erick Becker, Cely Ray, Eugeen Mckay and colleagues, with an educational christofer from [employer]. Thrive Questionnaire Date Thrive assessed: 08/11/24 AUDIT C Alcohol Use Questionnaire (AUDIT-C) 1. How often do you have a drink containing alcohol?: Never 3. How often do you have six or more drinks on one occasion?: Never Total Score: 0 ROSHAN-7 AMB Questionnaire ROSHAN-7 Date ROSHAN - 7 assessed: 07/27/24 Feeling nervous, anxious, or on edge: 0 = Not at all Not being able to stop or control worryin = Not at all Worrying too much about different things: 0 = Not at all Trouble relaxin = Not at all Being so restless that it is hard to sit still: 0 = Not at all Becoming easily annoyed or irritable: 0 = Not at all Feeling afraid as if something awful might happen: 0 = Not at all Total ROSHAN-7 score (0-4 normal; 5-9 mild; 10-14 moderate; 15-21 severe): 0 Source: Developed by Drs. Erick Becker, Cely Ray, Eugene Mckay and colleagues, with an educational christofer from [employer]. ROSHAN-7 Assessment Billing ROSHAN-7 Assessment Tool: ROSHAN-7 Assessment 74079 Review of Systems Const Denies body aches, Denies chills, Denies fever(s), Denies headache(s) and Denies poor appetite Eyes Reports no additional complaints ENT Denies dizziness and Denies headache(s) Card Denies chest pain and Denies dyspnea Resp Denies cough and Denies dyspnea GI Denies abdominal pain, Denies constipation, Denies diarrhea, Denies nausea and Denies vomiting Reports no additional complaints Musc Reports no additional complaints and Denies abnormal gait Skin/Breast Reports system reviewed and no additional complaints, except as documented Neuro Denies abnormal gait, Denies dizziness and Denies headache(s) Psych Reports no additional complaints Physical exam (Primary Care) Vital Signs: Last Vital Signs Temp 97.1 F 08/11/24 16:02 Pulse 68 08/11/24 16:02 BP 130/74 08/11/24 16:02 Pulse Ox 98 08/11/24 16:02 Oxygen Delivery Method Room Air 08/11/24 16:02 BMI result Body Mass Index 43.3 Tobacco/Smoking Status: Tobacco use Status Tobacco use date assessed 08/11/24 08/11/24 16:06 Patient Tobacco Use Status Never used Tobacco 08/11/24 16:06 e-Cigarette/Vaping Use Never Used 08/11/24 16:06 PHQ-9: PHQ-9 Score PHQ-9: Total score 0 08/11/24 16:09 Depression Screening Interpretation: Negative Thrive Assessment: Date of Thrive Assessment Date Thrive assessed 08/11/24 08/11/24 16:06 Const General: cooperative, healthy appearing, comfortable and no acute distress Orientation/consciousness: patient oriented x3 HENMT Head: Yes normocephalic Ears: hearing grossly normal bilaterally General nose exam: Normal external nose present Eyes General: appearance normal, both eyes and all related structures Conjunctivae: conjunctivae normal Neck Neck: Yes full ROM and Yes no lymphadenopathy Resp Effort & Inspection: normal respiratory effort Auscultation: clear to auscultation bilaterally, no crackles, no rales, no rhonchi and no wheezes Cardio Rate: regular rate Rhythm: regular rhythm GI Palpation (GI): Soft to palpation, not firm, nontender and no guarding Skin General skin exam: no rashes or lesions noted Neuro General: patient oriented x3 Gait exam (Neuro): Normal gait present Extrem General: Yes normal to inspection, Yes full ROM and No edema Psych Affect: normal affect Attitude: cooperative Insight: Good insight present (Psych) Judgement: Good judgement present (Psych) Coding Level of Care Code Est Pt Level 3 (01069) Diagnoses Cholelithiasis K80.20 Morbid obesity with BMI of 40.0-44.9, adult E66.01; Z68.41 Elevated blood pressure reading without diagnosis of hypertension R03.0 Additional Codes ROSHAN-7 Assessment Billing - ROSHAN-7 Assessment Tool: ROSHAN-7 Assessment 28152 ([id number]) Assessment & Plan Assessment & Plan (1) Cholelithiasis: Code(s): K80.20 - Calculus of gallbladder without cholecystitis without obstruction Category: Medical Plan: Patient found to have gallstones on abdominal ultrasound. This is likely what is responsible for her intermittent right upper quadrant pain. Pain has since resolved. Advised patient to avoid greasy and fatty foods. Reviewed red flag symptoms when to present for re-evaluation. Patient declining surgery at this time and would like to monitor symptoms. (2) Morbid obesity with BMI of 40.0-44.9, adult: Code(s): E66.01 - Morbid (severe) obesity due to excess calories; Z68.41 - Body mass index [BMI] 40.0-44.9, adult Category: Medical Plan: Healthy diet and regular exercise is encouraged. Working on getting into the weight management clinic at [place]. (3) Elevated blood pressure reading without diagnosis of hypertension: Code(s): R03.0 - Elevated blood-pressure reading, without diagnosis of hypertension Category: Medical Plan: Blood pressure within normal limits today 130/74. Avoid salt intake and encourage healthy diet and regular exercise. Plan This note was constructed using voice recognition software. While every effort has been made to ensure accuracy and clerical dentist assistant, still areas may have been included sometimes these areas may affect the content or meeting of the given symptoms. Total time spent caring for the patient today was twenty minutes. This includes time spent before the visit reviewing the chart, time spent during the visit, and time spent after the visit and documentation. Medications: Discontinued semaglutide (weight loss) (Ilya) administer weeks 1 through 4 of therapy Discontinued Reason: Patient no longer taking 0.25 mg (0.5 mL) subcut QWEEK 2 mL 0RF
[2024-08-11 16:02] VITALS: BP 130/74; PULSE 68; TEMP 36.2; O2SAT 98; BMI 43.3
== END 2024-08-11 16:27 | disposition home or self-care (01) ==
DX: K80.20 Calculus of gallbladder without cholecystitis without obstruction (principal); E66.01 Morbid (severe) obesity due to excess calories; Z68.41 Body mass index [BMI] 40.0-44.9, adult; R03.0 Elevated blood-pressure reading, without diagnosis of hypertension

== ENCOUNTER → 2024-08-11 15:50 | Outpatient (BNVA) | payer OTHER, SELFPAY | DX: K80.20 Calculus of gallbladder without cholecystitis without obstruction (principal); E66.01 Morbid (severe) obesity due to excess calories; R03.0 Elevated blood-pressure reading, without diagnosis of hypertension | CPT/HCPCS: 96127 ==

== ENCOUNTER 2025-05-20 16:02 | Outpatient (REF) | payer OTHER, SELFPAY ==
[2025-05-21 05:38] LABS: Bacterial Vaginosis PCR POSITIVE (Negative); Candida Group PCR NOT DETECTED (Not Detect); Candida glab krusei PCR NOT DETECTED (Not Detect); Trichomonas vaginalis PCR NOT DETECTED (Not Detect)
== END 2025-05-20 16:03 | disposition home or self-care (01) ==
LOC: HO.LNP 16:02
DX: Z00.00 Encounter for general adult medical examination without abnormal findings (principal); E66.01 Morbid (severe) obesity due to excess calories; R03.0 Elevated blood-pressure reading, without diagnosis of hypertension; N89.8 Other specified noninflammatory disorders of vagina; Z80.3 Family history of malignant neoplasm of breast; K80.20 Calculus of gallbladder without cholecystitis without obstruction; Z68.41 Body mass index [BMI] 40.0-44.9, adult
CPT/HCPCS: 81515; 96127

== ENCOUNTER 2025-05-20 16:02 | Outpatient (AMB) | payer OTHER, SELFPAY ==
--- NOTE | 2025-05-20 16:05 | A.OFFPC_ITS ---
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 Accompanied by: Self / Same As Patient Allergies No Known Allergies Allergy (Verified 05/20/25 16:14) Medication List - Last Reconciled 05/20/25 by Carol Pang PA-C No Known Home Meds Tobacco use date assessed: 05/20/25 Dental Screening Dental Screen Date: 05/20/25 Did you have a dental visit in the last 12 months?: No Did you have a dental problem in the last 6 months where you did not have access to dental care?: No Was dental information given to patient?: No HPI Annual Exam HPI Details 30 year old female with past medical his tory of cholelithiasis last seen 07/2024 coming in for annual exam. Presenting with weight management concerns and gallstones. The patient reports significant weight gain, impacting her motivation and mobility, making physical activity challenging. She has an appointment with a weight healthcare management, but insurance coverage is uncertain. The patient experienced right- sided chest pain last month, prompting an ER visit where no significant findings were noted. The pain has not recurred since the ER visit. The patient has a history of gallstones, with multiple stones identified in July. She experiences intermittent abdominal discomfort unrelated to specific meals. The patient reports increased and sometimes malodorous vaginal discharge, raising concerns about a possible yeast infection. A vaginal swab has been ordered for further evaluation. The patient's mother was diagnosed with breast cancer in her 50s, prompting discussions about genetic testing and early screening. pap smear: 2023 [facility] vaccines: Tdap UTD and flu declined PFSH Medical History Gestational hypertension delivery delivered Surgical History History of wisdom tooth extraction Family History Father Diabetes Mother No problems noted. Maternal Grandfather Diabetes Paternal Grandfather Diabetes Colon cancer Sister In good health Sister In good health Social History Housing: Apartment Alcohol intake: never Patient Tobacco Use Status: Never used Tobacco e-Cigarette/Vaping Use: Never Used Second Hand Smoke Exposure: No service: No Current occupational status: employed Cognitive needs: No Hearing needs: No Vision needs: Yes Questionnaire PHQ-9 Over the last 2 weeks, how often have you been bothered by any of the following problems? 1. Little interest or pleasure in doing things: not at all 2. Feeling down, depressed, or hopeless: not at all 3. Trouble falling or staying asleep, or sleeping too much: not at all 4. Feeling tired or having little energy: not at all 5. Poor appetite or overeating: not at all 6. Feeling bad about yourself - or that you are a failure or have let yourself or your family down: not at all 7. Trouble concentrating on things, such as reading the newspaper or watching television: not at all 8. Moving or speaking so slowly that other people could have noticed. Or the opposite - being so fidgety or restless that you have been moving around a lot more than usual: not at all 9. Thoughts that you would be better off or of hurting yourself in some way: not at all Total score: 0 Depression Screening Interpretation: Negative Depression Screening Done: Yes Source: Developed by Drs. Erick Becker, Cely Ray, Eugene Mckay and colleagues, with an educational christofer from [employer]. Thrive Questionnaire Date Thrive assessed: 05/20/25 I am a: Patient What is your living situation today?: I have a steady place to live Within the past 12 months, did the food you bought not last and you didn't have the money to get more?: Never true Within the past 12 months, did you worry whether your food would run out before you got money to buy more?: Never true Do you have trouble paying for medicines?: No Do you have trouble getting transportation to medical appointments?: No Do you have trouble paying your heating and electricity bill?: No Do you have trouble taking care of your child, family member or friend?: No Do you have trouble with day-to-day activities such as bathing, preparing meals, shopping, managing finances, etc.?: No Are you currently unemployed and looking for a job?: No Are you interested in more education?: No Please select the resources that you would like help with: None Currently or been in a relationship where the following occur: No concerns reported THRIVE Score: 0 AUDIT C Alcohol Use Questionnaire (AUDIT-C) 1. How often do you have a drink containing alcohol?: Never 3. How often do you have six or more drinks on one occasion?: Never Total Score: 0 ROSHAN-7 AMB Questionnaire ROSHAN-7 Date ROSHAN - 7 assessed: 07/27/24 Feeling nervous, anxious, or on edge: 0 = Not at all Not being able to stop or control worryin = Not at all Worrying too much about different things: 0 = Not at all Trouble relaxin = Not at all Being so restless that it is hard to sit still: 0 = Not at all Becoming easily annoyed or irritable: 0 = Not at all Feeling afraid as if something awful might happen: 0 = Not at all Total ROSHAN-7 score (0-4 normal; 5-9 mild; 10-14 moderate; 15-21 severe): 0 Source: Developed by Drs. Erick Becker, Cely Ray, Eugene Mckay and colleagues, with an educational christofer from [employer]. Review of Systems Const Denies body aches, Denies fatigue, Denies fever(s), Denies frequent falls, Denies headache(s) and Denies weakness Eyes Reports no additional complaints and Denies change in vision ENT Denies dysphagia, Denies dizziness, Denies facial pain, Denies headache(s), Denies nasal congestion and Denies odynophagia Card Denies chest pain, Denies syncope, Denies leg edema, Denies lightheadedness and Denies dyspnea Resp Denies cough and Denies dyspnea GI Reports abdominal pain (intermittent RUQ pain), Denies constipation, Denies dysphagia, Denies dyspepsia, Denies diarrhea, Denies nausea, Denies odynophagia and Denies vomiting Denies urinary frequency, Denies dysuria, Denies urinary hesitancy and Denies urinary urgency Musc Denies back pain and Denies myalgias Skin/Breast Reports system reviewed and no additional complaints, except as documented Neuro Denies dizziness, Denies syncope, Denies frequent falls, Denies headache(s) and Denies weakness Psych Reports no additional complaints Endo Denies fatigue Physical exam (Primary Care) Vital Signs: Last Vital Signs Temp 97.5 F 05/20/25 16:06 Pulse 75 05/20/25 16:06 Resp 18 05/20/25 16:06 BP 130/66 05/20/25 16:06 Pulse Ox 97 05/20/25 16:06 Oxygen Delivery Method Room Air 05/20/25 16:06 BMI result Body Mass Index 44.1 Tobacco/Smoking Status: Tobacco use Status Tobacco use date assessed 05/20/25 05/20/25 16:10 Patient Tobacco Use Status Never used Tobacco 05/20/25 16:10 e-Cigarette/Vaping Use Never Used 05/20/25 16:10 PHQ-9: PHQ-9 Score PHQ-9: Total score 0 05/20/25 16:10 Depression Screening Interpretation: Negative Thrive Assessment: Date of Thrive Assessment Date Thrive assessed 05/20/25 05/20/25 16:10 Currently or been in a relationship where the following occur: No concerns reported Const General: cooperative, healthy appearing, comfortable and no acute distress Orientation/consciousness: patient oriented x3 HENMT Head: Yes normocephalic Ears: hearing grossly normal bilaterally, external ears normal, TM's normal bilaterally and EAC's normal General nose exam: Normal external nose present Face and sinus: Yes normal facial exam and Yes sinuses nontender Mouth: Normal oral and palatal mucosa present and tongue normal Throat: Yes posterior oropharynx normal Eyes General: appearance normal, both eyes and all related structures Conjunctivae: conjunctivae normal Pupils: Equal, round and reactive pupils present EOM: EOMs intact bilaterally and No Nystagmus present Neck Neck: Yes normal visual inspection, Yes full ROM and Yes no lymphadenopathy Chest Chest palpation & inspection: normal inspection of the chest Resp Effort & Inspection: normal respiratory effort Auscultation: clear to auscultation bilaterally, no crackles, no rales, no rhonchi, no wheezes and breath sounds present Cardio Rate: regular rate Rhythm: regular rhythm Peripheral pulses: radial pulses present and dorsalis pedis present GI Inspection: Yes normal to inspection and No Abdominal wall edema Palpation (GI): Soft to palpation, not firm and nontender Auscultation: normal bowel sounds Rectal Exam - Female: deferred General: Yes no CVA tenderness Back/Spine/Pelvis Back: no CVA tenderness Skin General skin exam: no rashes or lesions noted Neuro General: patient oriented x3 Cranial nerves: Yes Equal, round and reactive pupils present, Yes Midline tongue present, Yes Ability to bilaterally elevate shoulders present and No Nystagmus present Gait exam (Neuro): Normal gait present Extrem General: Yes normal to inspection, Yes full ROM, No no pedal edema and No edema Psych Speech and movement: Normal speech and movement present Affect: normal affect Insight: Good insight present (Psych) Judgement: Good judgement present (Psych) Coding Level of Care Code Est Pt Prev Care 18-39y(19607) Diagnoses Adult general medical exam Z00.00 Morbid obesity with BMI of 40.0-44.9, adult E66.01; Z68.41 Elevated blood pressure reading without diagnosis of hypertension R03.0 Vaginal discharge N89.8 Family history of breast cancer Z80.3 Cholelithiasis K80.20 Assessment & Plan Assessment & Plan (1) Adult general medical exam: Comment: Salazar MULLIGAN's Pfizer x 2. Pap 5 years ago, pt is to call for woman's exam Code(s): Z00.00 - Encounter for general adult medical examination without abnormal findings Category: Medical Plan: Patient is up-to-date on all recommended routine screenings and vaccinations for her age. She is refusing the flu vaccine today. I did ordered for updated blood work to be completed prior to next visit. Healthy diet and regular ex ercise is encouraged. Plan to follow up yearly or sooner as needed pending blood work evaluation (2) Morbid obesity with BMI of 40.0-44.9, adult: Code(s): E66.01 - Morbid (severe) obesity due to excess calories; Z68.41 - Body mass index [BMI] 40.0-44.9, adult Category: Medical Plan: Healthy diet and regular exercise is encouraged. She has a appointment with [facility] weight management however her insurance is changing and referral was placed to [facility] as this is the preferred provider for her insurance. (3) Elevated blood pressure reading without diagnosis of hypertension: Code(s): R03.0 - Elevated blood-pressure reading, without diagnosis of hypertension Category: Medical Plan: Avoid salt intake and encourage healthy diet and regular exercise. (4) Vaginal discharge: Code(s): N89.8 - Other specified noninflammatory disorders of vagina Category: Medical Plan: Ordered for bacterial vaginosis swab for further evaluation (5) Family history of breast cancer: Comment: Mom in her 50s Code(s): Z80.3 - Family history of malignant neoplasm of breast Category: Medical Plan: Patient's mother was diagnosed with breast cancer unsure about BRCA testing. I did offer referral to genetic testing today which was declined. (6) Cholelithiasis: Code(s): K80.20 - Calculus of gallbladder without cholecystitis without obstruction Category: Medical Plan: The patient has a history of gallstones with multiple stones identified in July. Dietary modifications to avoid fatty foods were recommended to manage symptoms. Surgical intervention was discussed as an option if symptoms become severe or frequent. Plan This note was constructed using voice recognition software. While every effort has been made to ensure accuracy and saddle and harness maker, still areas may have been included sometimes these areas may affect the content or meeting of the given symptoms. Total time spent caring for the patient today was 30 minutes. This includes time spent before the visit reviewing the chart, time spent during the visit, and time spent after the visit and documentation. Patient was informed and verbally consented to the use of an ambient scribe for clinic note documentation during this visit. Orders: Orders Vitamin B12 and Folate Today Z13.21 - Encounter for screening for nutritional disorder Bacterial Vaginosis Panel Today N89.8 - Other specified noninflammatory disorders of vagina Hemoglobin A1c Today E11.65 - Type 2 diabetes mellitus with hyperglycemia, Z13.1 - Encounter for screening for diabetes mellitus TSH reflex Free T4 Today Z13.29 - Encounter for screening for other suspected endocrine disorder Vitamin D 25-OH Total Today Z13.21 - Encounter for screening for nutritional disorder Lipid Panel Today Z13.220 - Encounter for screening for lipoid disorders Complete Blood Count Auto Diff Today Z13.0 - Encounter for screening for diseases of the blood and blood-forming organs and certain disorders involving the immune mechanism Comprehensive Met. Panel Today Z13.1 - Encounter for screening for diabetes mellitus Referrals Medical Weight Management Referral E66.01 - Morbid (severe) obesity due to excess calories, Z68.41 - Body mass index [BMI] 40.0-44.9, adult
[2025-05-20 16:06] VITALS: BP 130/66; PULSE 75; RESP 18; TEMP 36.4; O2SAT 97; BMI 44.1
--- OUTSIDE RECORDS SUMMARY | 2025-05-20 19:26 | XMS_ITS | Continuity of Care Document ---
Author Organization [facility] Address [address] [address] Insurance Providers Payer Plan Claims Address Claims Phone Policy Number Group Number Relation Employer Guarantor Name Guarantor Guarantor Address Guarantor Phone [facility] Lauri GAMBOA [place] 1 [facility] [address], [facility] [place] [id number] Self Marleni Villanueva [address] [place] [address], [address] , [employer] [id number] Problems Condition ICD9 code ICD10 code SNOMED code Start Date End Date S tatus Encounter for screening for other metabolic disorders Z13.228 Results No Results Allergies, adverse reactions, alerts No known allergies and adverse reactions Medications No administered medications reported Vital Signs No vital signs reported Social History No smoking Hx information available
--- OUTSIDE RECORDS SUMMARY | 2025-05-20 19:26 | XMS_ITS | Clinical Summary ---
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 Name Role Phone Unavailable Primary Care Provider Unavailabl e Social History Tobacco Use Types Packs/Day Years Used Date Smoking Tobacco: Never Assessed Comments Unknown Sex and Gender Information Value Date Recorded Sex Assigned at Not on file Legal Sex Female 11:41 AM EDT Gender Identity Not on file Sexual Orientation Not on file Plan of Treatment Upcoming Encounters Date Type Department Care Team ([facility] Contact Info) Description 08/19/2025 9:00 AM EST Consult Bariatric Surgery - [place] [address] [facility] [address] [place] [address] Paresh Webster MD [address] [place] [phone] Health Maintenance Due Date Last Done Comments DTaP,Tdap,and Td Vaccines (1 - Tdap) 02/02/2016 Hepatitis B Vaccines (1 of 3 - 19+ 3-dose series) 02/02/2016 Cervical Cancer Screening: P ap Smear 2018 HPV Vaccines (1 - 3-dose SCD M series) 02/02/2024 HIV Screening 05/23/2024 Hepatitis C Screening 05/23/2024 Social Influencers of Health Screening 05/23/2024 Depression Screening 07/29/2024 COVID-19 Vaccine ( - 2023-2 5 season) 2025 Influenza Vaccine (#1) 2025 RSV Immunization Adult Patie nts (1 - 1-dose 75+ series) 02/02/2072 HIB Vaccines Aged Out No longer eligi ble based on patient's age to complete this topic Hepatitis A Vaccines Aged Out No long er eligible based on patient's age to complete this topic IPV Vaccines Aged Out No longer eligi ble based on patient's age to complete this topic MMR Vaccines Aged Out No longer eligi ble based on patient's age to complete this topic Meningococcal ACWY Vaccine Aged Out N o longer eligible based on patient's age to complete this topic Meningococcal B Vaccine Aged Out No l onger eligible based on patient's age to complete this topic Pneumococcal Vaccine: Pediat rics (0 to 5 Years) and At-Risk Patients (6 to 49 Years) Aged Out No longer eligible b ased on patient's age to complete this topic RSV Immunization Patients Un charlie 20 months Aged Out No longer eligible b ased on patient's age to complete this topic Varicella Vaccines Aged Out No longer eligible based on patient's age to complete this topic Insurance [facility] [address] [place] [address]
== END 2025-05-20 16:58 | disposition home or self-care (01) ==
LOC: HO.HMCH 16:03
DX: Z00.00 Encounter for general adult medical examination without abnormal findings (principal); E66.01 Morbid (severe) obesity due to excess calories; Z68.41 Body mass index [BMI] 40.0-44.9, adult; R03.0 Elevated blood-pressure reading, without diagnosis of hypertension; N89.8 Other specified noninflammatory disorders of vagina; Z80.3 Family history of malignant neoplasm of breast; K80.20 Calculus of gallbladder without cholecystitis without obstruction

== ENCOUNTER 2025-06-21 11:33 | Outpatient (REF) | payer OTHER, SELFPAY ==
[2025-06-21 11:45] LABS: MANUAL DIFF FLAG NO
[2025-06-21 12:25] LABS: Hematocrit 39.3 % (37.0-47.0); Hemoglobin 12.2 g/dl (12.0-16.0); Imm Gran Abs Auto 0.03 X10*3/uL (0.00-0.03); Imm Gran Pct Auto 0.3 % (0.0-0.4); Lymphocytes Absolute Auto 3.0 X10*3/uL (1.2-4.9); Mean Corpuscular HGB Conc 31.0 g/dl (31.0-35.0); Mean Corpuscular Hemoglobin 24.6 pg (27.0-33.0); Mean Corpuscular Volume 79.4 fL (80.0-98.0); NRBC Abs Auto 0.000 X10*3/uL (0.0-0.012); NRBC Pct Auto 0.0 /100WBC (0.0-0.2); Platelet Count 405 X10*3/uL (160-400); Red Blood Count 4.95 X10*6/uL (4.20-5.50); White Blood Count 9.3 X10*3/uL (4.8-10.8)
[2025-06-21 13:06] LABS: Alanine Aminotransferase 16 U/L (0-31); Albumin Level 4.0 g/dL (3.5-5.0); Alkaline Phosphatase 91 U/L (39-117); Anion Gap 11 (12-20); Aspartate Amino Transferase 22 U/L (5-31); Blood Urea Nitrogen 8 mg/dL (9-16); Calcium 9.0 mg/dL (8.4-10.2); Carbon Dioxide 24 mmol/L (22-29); Chloride 111 mmol/L (96-108); Cholesterol 188 mg/dL (<200); Estimated Glomerular Filt Rate > 60; HDL Cholesterol 38 mg/dL (>40); Potassium 4.2 mmol/L (3.3-5.1); Sodium 142 mmol/L (135-145); Total Protein 7.3 g/dL (6.5-8.0); Triglycerides 97 mg/dL (<150)
[2025-06-21 14:24] LABS: Free T4 (Free Thyroxine) 0.96 ng/dL (0.71-1.85)
[2025-06-21 14:53] LABS: Folate 7.5 ng/mL (> or = 4.0); Vitamin B12 322 pg/mL (200-900)
--- OUTSIDE RECORDS SUMMARY | 2025-06-21 15:24 | XMS_ITS | Clinical Summary ---
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 Name Role Phone Unavailable Primary Care Provider Unavailabl e Social History Tobacco Use Types Packs/Day Years Used Date Smoking Tobacco: Never Assessed Comments Unknown Sex and Gender Information Value Date Recorded Sex Assigned at Not on file Legal Sex Female 11:41 AM EDT Gender Identity Not on file Sexual Orientation Not on file Plan of Treatment Upcoming Encounters Date Type Department Care Team ([facility] Contact Info) Description 08/19/2025 9:00 AM EST Consult Bariatric Surgery - [place] [address] [facility] [address] [place] [address] Paresh Webster MD [address] [place] [phone] Health Maintenance Due Date Last Done Comments DTaP,Tdap,and Td Vaccines (1 - Tdap) 02/02/2016 Hepatitis B Vaccines (1 of 3 - 19+ 3-dose series) 02/02/2016 Cervical Cancer Screening: P ap Smear 2018 HPV Vaccines (1 - 3-dose SCD M series) 02/02/2024 HIV Screening 05/23/2024 Hepatitis C Screening 05/23/2024 Social Influencers of Health Screening 05/23/2024 Depression Screening 07/29/2024 COVID-19 Vaccine ( - 2024-2 6 season) 2025 Influenza Vaccine (#1) 2025 RSV [...] patient's age to complete this topic Insurance [facility] [address] [place] [address]
== END 2025-06-21 11:34 | disposition home or self-care (01) ==
LOC: HO.LAB 11:33
DX: Z13.1 Encounter for screening for diabetes mellitus (principal); Z13.6 Encounter for screening for cardiovascular disorders; Z13.29 Encounter for screening for other suspected endocrine disorder; Z13.21 Encounter for screening for nutritional disorder; Z13.220 Encounter for screening for lipoid disorders; Z13.0 Encounter for screening for diseases of the blood and blood-forming organs and certain disorders involving the immune mechanism
CPT/HCPCS: 36415; 80053; 80061; 82306; 82607; 82746; 83036; 84439; 84443; 85025